=== PATIENT | female | born 2005 | race Hispanic/Latino ===

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

== ENCOUNTER 2023-01-27 08:44 | Emergency (ER) | payer OTHER ==
--- OUTSIDE RECORDS SUMMARY | 2023-01-27 08:49 | XMS REPORT | Continuity of Care Document ---
:2005 Author Organization [facility] t Address [address] [place] [address] Care Team Providers Name Role Phone Tr Perry Attending Clinician TR FENTON Attending Clinician Unavailable Doctor Unassigned, [place] Attending Clinician Unavailable Deya Hooks APN Attending Clinician Javi Baum MD, Michelle Attending Clinician [phone] Rustam Mcintosh MD, Lara Laughlin Attending Clinician [facility] Attending Clinician Unavailable Glenn HER, Zina Amaral Attending Clinician [phone] Nae Montenegro Admitting Clinician Unavailable Payers Payer Name Policy Type Policy Number Effective Date Expiration Date S ource Problems Condition Condition Condition Status Onset Resolution Last Treating Co mments Source Name Details Category Date Date Treatment Clinician Date BMI BMI Disease Active Univers 35.0-35.9, 35.0-35.9, 6-30 it y of adult adult 00:00: [place] 00 Medical Branch General General Disease Active Univers counseling counseling 6-30 it y of for for 00:00: [place] initiation initiation 00 Me dical of other of other Branch contracept contracept dale dale measures measures HSV-1 HSV-1 Disease Active Univers (herpes (herpes 828 ity of simplex simplex 00:00: [place] virus 1) virus 1) 00 Medica l infection infection Bran ch Gonorrhea Gonorrhea Disease Active Uni vers 8-23 ity of 00:00: [place] 00 Medical Branch Chlamydia Chlamydia Disease Active Uni vers trachomati trachomati 8-23 it y of s s 00:00: [place] infection infection 00 Medi nelda of lower of lower Branch genitourin genitourin aye sites aye sites Obesity Obesity Disease Active Univers (BMI (BMI 8-21 ity of 30.0-34.9) 30.0-34.9) [place] Nexplanon Nexplanon Disease Active Uni vers in place in place 8-21 ity of 00:00: [place] 00 Medical Branch Class 2 Class 2 Disease Active Univers obesity obesity 8-21 it[place] of with body with body 00:[place] mass index mass index 00 Me dical (BMI) of (BMI) of Branch 35.0 to 35.0 to 35.9 in 35.9 in adult, adult, unspecifie unspecifie d obesity d obesity type, type, unspecifie unspecifie d whether d whether serious serious comorbidit comorbidit y present y present Allergies, Adverse Reactions, Alerts Allergy Allergy Status Severity Reaction(s) Onset Inactive Treating Comm ents Source Name Type Date Date Clinician No Known DA Active U [facility] Allergie 1-04 Clear s 00:00: [place] 00 [facility] NO KNOWN Drug Active Univers ALLERGIE Class ity of S [facility] Social History Social Habit Start Date Stop Date Quantity Comments Source Exposure to Not sure University SARS-CoV-2 [facility] (event) Branch Alcohol intake 2021-05-31 2021-05-31 Current drinker of Un iversity of 00:00:00 00:00:00 [facility] (finding) [facility] [place] Tobacco use and 2021-05-31 2021-05-31 Never used Universit y of exposure 00:00:00 00:00:00 [facility] Alcohol Comment 2021-05-31 2021-05-31 occasionally Univers ity of 00:00:00 00:00:00 [facility] Sex Assigned At 2005 2003 Universit y of 00:00:00 00:00:00 [facility] Smoking Status Start Date Stop Date Source Never smoker [facility] Medications Ordered Filled Start Stop Current Ordering Indication Dosage Frequency Signature Comments Components Source Medication Medication Date Date Medication? Clinician (SIG) Name Name gillianjasper 2020- No 1000mg 1,000 mg, Univers n 01-09 Oral, ity of (ZITHROMAX) 19:45: 18:59 ONCE, 1 [place] tablet 00 :[place] dose, Sat Medical 1,000 mg 01/09/20 at Branch 1345, FLOR
Re ason for Anti-Infec tive: Empiric Therapy for Suspected Infection< br>Empiric Therapy Site: Urine
D uration of therapy: 72 hours cefTRIAXone 2019- No 1000mg 1,000 mg, Univers (ROCEPHIN) 01-09 IV ity of injection 19:45: 18:59 [place] 1,000 mg 00 :00 ONCE, 1 Medical dose, Sat Branch 01/09/20 at 1345, FLOR
Fa culty member approving Restricted medication : DEYA HOOKS
Reaso n for Anti-Infec tive: Empiric Therapy for Suspected Infection< br>Empiric Therapy Site: Urine
D uration of therapy: 72 hours ketorolac 2019- 2020- No 15mg 15 mg, Unive rs (TORADOL) 01-09 Slow IV ity of injection 19:45: 18:59 Push, [place] 15 mg 00 :00 ONCE, 1 Medical dose, Sat Branch 01/09/20 at 1345, FLOR
Fa culty member approving Restricted medication : DEYA HOOKS ondansetron 2020- No 4mg 4 mg, Slow Univers (ZOFRAN 01-09 IV Push, ity of (PF)) 19:45: 18:59 ONCE, 1 [place] injection 4 00 :00 dose, Sat Med ical mg 01/09/20 at Branch 1345, [place]OR NaCl 0.9% 2019- No 1000mL at 999 Uni vers (NS) bolus 01-09 mL/hr, ity of infusion 19:45: 20:06 1,000 mL, [place] as 1,000 mL 00 :00 IV Medical Infusion, Branch ONCE, 1 dose, 01/09/20 at 1345, STAT doxycycline 2020- No [id number] 100mg Take 1 Univers hyclate 100 01-09 capsule by i ty of mg capsule 00:00: 05:59 mouth 2 [place] as 00 :00 (two) Medical times [place] daily for 14 days. SERTraline 2018-12 Yes [id number] 25mg Take 1 U nivers 25 mg 2-20 tablet by ity of tablet 00:00: mouth [place] 00 daily. Medical Branch SERTraline 2018-12 Yes [id number] 25mg Take 1 U nivers 25 mg 2-20 tablet by ity of tablet 00:00: mouth [place] 00 daily. [facility] Branch SERTraline 2018-12 Yes [id number] 25mg Take 1 U nivers 25 mg 2-20 tablet by ity of tablet 00:00: mouth [place] 00 daily. [facility] Branch SERTraline 2018-12- No [id number] 25mg Take 1 Univers 25 mg 2-20 06-30 tablet by ity of tablet 00:00: 00:00 mouth [place] 00 :00 daily. [facility] Branch SERTraline 2018-12- No [id number] 25mg Take 1 Univers 25 mg 2-20 06-30 tablet by ity of tablet 00:00: 00:00 mouth [place] 00 :00 daily. [facility] Branch SERTRALINE Yes [id number] TAKE 1 U nivers 25 mg 9-17 TABLET BY ity of tablet 00:00: MOUTH [place] 00 EVERY DAY Medical Branch hydrOXYzine 2018- No [id number] 25mg Take 1 Univers 25 mg 9-03 10-04 tablet by ity of tablet 00:00: 04:59 mouth [place] 00 :00 every 8 Medical (eight) Branch hours as needed for Anxiety for up to 30 days. ketoconazol 2019- No [id number] Apply to Univers e 2 % 08-04 area(s) ity of shampoo 00:00: 04:59 once daily [place] 00 :00 as needed Medical for Branch Itching for up to 30 days. hydrOXYzine 2019- No [id number] 25mg Take 1 Univers 25 mg 08-04 tablet by ity of tablet 00:00: 04:59 mouth [place] 00 :00 every 8 Medical (eight) Branch hours as needed for Anxiety for up to 30 days. ketoconazol 2018- No [id number] Apply to Univers e 2 % 08-04 area(s) ity of shampoo 00:00: 04:59 once daily [place] 00 :00 as needed Medical for Branch Itching for up to 30 days. SERTraline 2019- No [id number] 25mg Take 1 Univers 25 mg 8-20 09-20 tablet by ity of tablet 00:00: 04:59 mouth [place] 00 :00 daily for Medical 30 days. Branch SERTraline 2019- No [id number] 25mg Take 1 Univers 25 mg 8-20 09-20 tablet by ity of tablet 00:00: 04:59 mouth [place] 00 :00 daily for Medical 30 days. Branch SERTraline 2019- No [id number] 25mg Take 1 Univers 25 mg 8-20 09-20 tablet by ity of tablet 00:00: 04:59 mouth [place] 00 :00 daily for Medical 30 days. Branch SERTraline 2019- No [id number] 25mg Take 1 Univers 25 mg 8-20 09-20 tablet by ity of tablet 00:00: 04:59 mouth [place] 00 :00 daily for Medical 30 days. Branch SERTraline 2019- No [id number] 25mg Take 1 Univers 25 mg 8-20 09-16 tablet by ity of tablet 00:00: 00:00 mouth [place] 00 :00 daily for Medical 30 days. Branch cefTRIAXone 2019- No 250mg Univ ers (ROCEPHIN) 7-25 07-25 ity of 250 mg in 21:15: 20:14 [place] lidocaine 00 :00 Medical 1% (PF) Branch (XYLOCAINE) 1 mL injection cefTRIAXone 2019- No 250mg 250 mg, U nivers (ROCEPHIN) 06-25-25 Intramuscu it y of 250 mg in 21:15: 20:14 [place], ONCE [place] lidocaine 00 :00 NOW, 1 Medical 1% (PF) dose, Jocelyn Branch (XYLOCAINE) 06/25/19 at 1 mL 1615, 1 injection mL
Reas on for Anti-Infec tive: Documented Infection< br>Documen devang Infection Site: Pelvic
Duration of Therapy: Other (see Comments) PARoxetine Yes [id number] 20mg Take 1 U nivers 20 mg 7-18 tablet by ity of tablet 00:00: mouth [place] 00 every Medical morning. Branch PARoxetine Yes [id number] 20mg Take 1 U nivers 20 mg 7-18 tablet by ity of tablet 00:00: mouth [place] 00 every Medical morning. Branch PARoxetine 2019- No [id number] 20mg Take 1 Univers 20 mg 7-18 08-20 tablet by ity of tablet 00:00: 00:00 mouth [place] 00 :00 every Medical morning. Branch PARoxetine 2019- No [id number] 20mg Take 1 Univers 20 mg 7-18 08-20 tablet by ity of tablet 00:00: 00:00 mouth [place] 00 :00 every Medical morning. Branch clonazePAM 2018- Yes [id number] .5mg Take 1 U nivers 0.5 mg 4-02 tablet by ity of tablet 00:00: mouth 2 [place] 00 (two) Medical times Branch daily as needed (anxiety). clonazePAM 2018- Yes [id number] .5mg Take 1 U nivers 0.5 mg 4-02 tablet by ity of tablet 00:00: mouth 2 [place] 00 (two) Medical times Branch daily as needed (anxiety). clonazePAM 2019-0 Yes [id number] .5mg Take 1 U nivers 0.5 mg 4-02 tablet by ity of tablet 00:00: mouth 2 [place] 00 (two) Medical times Branch daily as needed (anxiety). clonazePAM 2018- 2019- No [id number] .5mg Take 1 Univers 0.5 mg 4-02 09-03 tablet by ity of tablet 00:00: 00:00 mouth 2 [place] 00 :00 (two) Medical times Branch daily as needed (anxiety). clonazePAM 2018- 2019- No [id number] .5mg Take 1 Univers 0.5 mg 03-03 tablet by ity of tablet 00:00: 00:00 mouth 2 [place] 00 :00 (two) Medical times Branch daily as needed (anxiety). busPIRone 5 2019-0 Yes 5mg Take 1 Univ ers mg tablet 3-04 tablet by ity o f 00:00: mouth [place] 00 daily. Medical Branch busPIRone 5 2019-0 Yes 5mg Take 1 Univ ers mg tablet 3-04 tablet by ity o f 00:00: mouth [place] 00 daily. Medical Branch busPIRone 5 2019-0 Yes 5mg Take 1 Univ ers mg tablet 3-04 tablet by ity o f 00:00: mouth [place] 00 daily. Medical Branch busPIRone 5 2019-0 Yes 5mg Take 1 Univ ers mg tablet 3-04 tablet by ity o f 00:00: mouth [place] 00 daily. Medical Branch busPIRone 5 2019-0 Yes 5mg Take 1 Univ ers mg tablet 3-04 tablet by ity o f 00:00: mouth [place] 00 daily. Medical Branch busPIRone 5 2019-0 Yes 5mg Take 1 Univ ers mg tablet 3-04 tablet by ity o f 00:00: mouth [place] 00 daily. Medical Branch busPIRone 5 2019-0 Yes 5mg Take 1 Univ ers mg tablet 3-04 tablet by ity o f 00:00: mouth [place] 00 daily. Medical Branch busPIRone 5 2019-0 Yes 5mg Take 1 Univ ers mg tablet 3-04 tablet by ity o f 00:00: mouth [place] 00 daily. Medical Branch busPIRone 5 2019-0 Yes 5mg Take 1 Univ ers mg tablet 3-04 tablet by ity o f 00:00: mouth [place] 00 daily. Medical Branch busPIRone 5 2019-0 Yes 5mg Take 1 Univ ers mg tablet 3-04 tablet by ity o f 00:00: mouth [place] 00 daily. Medical Branch busPIRone 5 2019-0 2021- No 5mg Take 1 Uni vers mg tablet 3-04 06-30 tablet by ity of 00:00: 00:00 mouth [place] 00 :00 daily. Medical Branch busPIRone 5 2019-0 2021- No 5mg Take 1 Uni vers mg tablet 02-02 tablet by ity of 00:00: 00:00 mouth [place] 00 :00 daily. [facility] Immunizations Ordered Immunization Filled Immunization Date Status Commen ts Source Name Name [facility] 2016-02-24 Completed University of 00:00:00 [facility] Meningococcal B, 2016-02-24 Completed Universi ty of Recombinant 00:00:00 [facility] [place] 2016-02-24 Completed University of 00:00:00 [facility] Meningococcal B, 2016-02-24 Completed Universi ty of Recombinant 00:00:00 [facility] [place] 2016-02-24 Completed University of 00:00:00 [facility] Meningococcal B, 2016-02-24 Completed Universi ty of Recombinant 00:00:00 [facility] [place] 2016-02-24 Completed University of 00:00:00 [facility] Meningococcal B, 2016-02-24 Completed Universi ty of Recombinant 00:00:00 [facility] [place] 2016-02-24 Completed University of 00:00:00 [facility] Meningococcal B, 2016-02-24 Completed Universi ty of Recombinant 00:00:00 [facility] [place] 2016-02-24 Completed University of 00:00:00 [facility] Meningococcal B, 2016-02-24 Completed Universi ty of Recombinant 00:00:00 [facility] [place] 2016-02-24 Completed University of 00:00:00 [facility] Meningococcal B, 2016-02-24 Completed Universi ty of Recombinant 00:00:00 [facility] [place] 2016-02-24 Completed University of 00:00:00 [facility] Meningococcal B, 2016-02-24 Completed Universi ty of Recombinant 00:00:00 [facility] [place] 2016-02-24 Completed University of 00:00:00 [facility] Meningococcal B, 2016-02-24 Completed Universi ty of Recombinant 00:00:00 [facility] [place] 2016-02-24 Completed University of 00:00:00 [facility] Meningococcal B, 2016-02-24 Completed Universi ty of Recombinant 00:00:00 [facility] [place] 2016-02-24 Completed University of 00:00:00 [facility] Meningococcal B, 2016-02-24 Completed Universi ty of Recombinant 00:00:00 [facility] HPV 2016-02-24 Completed University of 00:00:00 [facility] Meningococcal B, 2016-02-24 Completed Universi ty of Recombinant 00:00:00 [facility] TDAP (ADACEL) 2015-06-14 Completed University of VACCINE 00:00:00 [facility] HPV 2015-06-14 Completed University of 00:00:00 [facility] Meningococcal 2015-06-14 Completed University of Vaccine 00:00:00 [facility] TDAP (ADACEL) 2015-06-14 Completed University of VACCINE 00:00:00 [facility] HPV 2015-06-14 Completed University of 00:00:00 [facility] Meningococcal 2015-06-14 Completed University of Vaccine 00:00:00 [facility] TDAP (ADACEL) 2015-06-14 Completed University of VACCINE 00:00:00 [facility] HPV 2015-06-14 Completed University of 00:00:00 [facility] Meningococcal 2015-06-14 Completed University of Vaccine 00:00:00 [facility] TDAP (ADACEL) 2015-06-14 Completed University of VACCINE 00:00:00 [facility] HPV 2015-06-14 Completed University of 00:00:00 [facility] Meningococcal 2015-06-14 Completed University of Vaccine 00:00:00 [facility] TDAP (ADACEL) 2015-06-14 Completed University of VACCINE 00:00:00 [facility] HPV 2015-06-14 Completed University of 00:00:00 [facility] Meningococcal 2015-06-14 Completed University of Vaccine 00:00:00 [facility] TDAP (ADACEL) 2015-06-14 Completed University of VACCINE 00:00:00 [facility] HPV 2015-06-14 Completed University of 00:00:00 [facility] Meningococcal 2015-06-14 Completed University of Vaccine 00:00:00 [facility] TDAP (ADACEL) 2015-06-14 Completed University of VACCINE 00:00:00 [facility] HPV 2015-06-14 Completed University of 00:00:00 [facility] Meningococcal 2015-06-14 Completed University of Vaccine 00:00:00 [facility] TDAP (ADACEL) 2015-06-14 Completed University of VACCINE 00:00:00 [facility] HPV 2015-06-14 Completed University of 00:00:00 [facility] Branch Meningococcal 2015-06-14 Completed University of Vaccine 00:00:00 [facility] TDAP (ADACEL) 2015-06-14 Completed University of VACCINE 00:00:00 [place] [facility] HPV 2015-06-14 Completed University of 00:00:00 [facility] Meningococcal 2015-06-14 Completed University of Vaccine 00:00:00 [facility] TDAP (ADACEL) 2015-06-14 Completed University of VACCINE 00:00:00 [facility] HPV 2015-06-14 Completed University of 00:00:00 [facility] Meningococcal 2015-06-14 Completed University of Vaccine 00:00:00 [facility] TDAP (ADACEL) 2015-06-14 Completed University of VACCINE 00:00:00 [facility] HPV 2015-06-14 Completed University of 00:00:00 [facility] Meningococcal 2015-06-14 Completed University of Vaccine 00:00:00 [facility] TDAP (ADACEL) 2015-06-14 Completed University of VACCINE 00:00:00 [facility] HPV 2015-06-14 Completed University of 00:00:00 [facility] Meningococcal 2015-06-14 Completed University of Vaccine 00:00:00 [facility] HPV 2014-02-10 Completed University of 00:00:00 [facility] HPV 2014-02-10 Completed University of 00:00:00 [facility] HPV 2014-02-10 Completed University of 00:00:00 [facility] HPV 2014-02-10 Completed University of 00:00:00 [facility] HPV 2014-02-10 Completed University of 00:00:00 [facility] HPV 2014-02-10 Completed University of 00:00:00 [facility] HPV 2014-02-10 Completed University of 00:00:00 [facility] HPV 2014-02-10 Completed University of 00:00:00 [facility] HPV 2014-02-10 Completed University of 00:00:00 [facility] HPV 2014-02-10 Completed University of 00:00:00 [facility] HPV 2014-02-10 Completed University of 00:00:00 [facility] HPV 2014-02-10 Completed University of 00:00:00 [facility] DTAP 2007-07-04 Completed University of 00:00:00 [facility] HEPATITIS A 2007-07-04 Completed University of 00:00:00 [facility] Polio (IPV/OPV) 2007-07-04 Completed Universit y of 00:00:00 [place] [facility] DTAP 2007-07-04 Completed University of 00:00:00 [facility] HEPATITIS A 2007-07-04 Completed University of 00:00:00 [place] [facility] Polio (IPV/OPV) 2007-07-04 Completed Universit y of 00:00:00 [place] [facility] DTAP 2007-07-04 Completed University of 00:00:00 [facility] HEPATITIS A 2007-07-04 Completed University of 00:00:00 [place] [facility] Polio (IPV/OPV) 2007-07-04 Completed Universit y of 00:00:00 [facility] DTAP 2007-07-04 Completed University of 00:00:00 [facility] HEPATITIS A 2007-07-04 Completed University of 00:00:00 [facility] Polio (IPV/OPV) 2007-07-04 Completed Universit y of 00:00:00 [facility] DTAP 2007-07-04 Completed University of 00:00:00 [facility] HEPATITIS A 2007-07-04 Completed University of 00:00:00 [facility] Polio (IPV/OPV) 2007-07-04 Completed Universit y of 00:00:00 [facility] DTAP 2007-07-04 Completed University of 00:00:00 [facility] HEPATITIS A 2007-07-04 Completed University of 00:00:00 [facility] Polio (IPV/OPV) 2007-07-04 Completed Universit y of 00:00:00 [facility] DTAP 2007-07-04 Completed University of 00:00:00 [facility] HEPATITIS A 2007-07-04 Completed University of 00:00:00 [facility] Polio (IPV/OPV) 2007-07-04 Completed Universit y of 00:00:00 [place] [facility] DTAP 2007-07-04 Completed University of 00:00:00 [facility] HEPATITIS A 2007-07-04 Completed University of 00:00:00 [facility] Polio (IPV/OPV) 2007-07-04 Completed Universit y of 00:00:00 [facility] DTAP 2007-07-04 Completed University of 00:00:00 [facility] HEPATITIS A 2007-07-04 Completed University of 00:00:00 [facility] Polio (IPV/OPV) 2007-07-04 Completed Universit y of 00:00:00 [facility] DTAP 2007-07-04 Completed University of 00:00:00 [facility] HEPATITIS A 2007-07-04 Completed University of 00:00:00 [facility] Polio (IPV/OPV) 2007-07-04 Completed Universit y of 00:00:00 [facility] DTAP 2007-07-04 Completed University of 00:00:00 [facility] HEPATITIS A 2007-07-04 Completed University of 00:00:00 [facility] Polio (IPV/OPV) 2007-07-04 Completed Universit y of 00:00:00 [facility] DTAP 2007-07-04 Completed University of 00:00:00 [facility] HEPATITIS A 2007-07-04 Completed University of 00:00:00 [facility] Polio (IPV/OPV) 2007-07-04 Completed Universit y of 00:00:00 [facility] MMR 2004-02-09 Completed University of 00:00:00 [facility] Varicella 2004-02-09 Completed University of (varivax)(chicken 00:00:00 [place] M edical pox) Branch [facility] 2004-02-09 Completed University of 00:00:00 [facility] Varicella 2004-02-09 Completed University of (varivax)(chicken 00:00:00 [place] M edical pox) Branch [facility] 2004-02-09 Completed University of 00:00:00 [facility] Varicella 2004-02-09 Completed University of (varivax)(chicken 00:00:00 [place] M edical pox) Branch [facility] 2004-02-09 Completed University of 00:00:00 [facility] Varicella 2004-02-09 Completed University of (varivax)(chicken 00:00:00 [place] M edical pox) Branch [facility] 2004-02-09 Completed University of 00:00:00 [facility] Varicella 2004-02-09 Completed University of (varivax)(chicken 00:00:00 [place] M edical pox) Branch MMR 2004-02-09 Completed University of 00:00:00 [facility] Varicella 2004-02-09 Completed University of (varivax)(chicken 00:00:00 [place] M edical pox) Branch MMR 2004-02-09 Completed University of 00:00:00 [facility] Varicella 2004-02-09 Completed University of (varivax)(chicken 00:00:00 [place] M edical pox) Branch MMR 2004-02-09 Completed University of 00:00:00 [facility] Varicella 2004-02-09 Completed University of (varivax)(chicken 00:00:00 [place] M edical pox) Branch MMR 2004-02-09 Completed University of 00:00:00 [facility] Varicella 2004-02-09 Completed University of (varivax)(chicken 00:00:00 [place] M edical pox) Branch MMR 2004-02-09 Completed University of 00:00:00 [facility] Varicella 2004-02-09 Completed University of (varivax)(chicken 00:00:00 [place] M edical pox) Branch MMR 2004-02-09 Completed University of 00:00:00 [facility] Varicella 2004-02-09 Completed University of (varivax)(chicken 00:00:00 [place] M edical pox) Branch MMR 2004-02-09 Completed University of 00:00:00 [facility] Varicella 2004-02-09 Completed University of (varivax)(chicken 00:00:00 [place] M edical pox) Branch Hep B, Adol or Pedi 2003 Completed Unive rsity of Dosage 00:00:00 [facility] Hep B, Adol or Pedi 2003 Completed Unive rsity of Dosage 00:00:00 [facility] Hep B, Adol or Pedi 2003 Completed Unive rsity of Dosage 00:00:00 [facility] Hep B, Adol or Pedi 2003 Completed Unive rsity of Dosage 00:00:00 [place] [facility] Hep B, Adol or Pedi 2003 Completed Unive rsity of Dosage 00:00:00 [facility] Hep B, Adol or Pedi 2003 Completed Unive rsity of Dosage 00:00:00 [place] [facility] Hep B, Adol or Pedi 2003 Completed Unive rsity of Dosage 00:00:00 [facility] Hep B, Adol or Pedi 2003 Completed Unive rsity of Dosage 00:00:00 [facility] Hep B, Adol or Pedi 2003 Completed Unive rsity of Dosage 00:00:00 [facility] Hep B, Adol or Pedi 2003 Completed Unive rsity of Dosage 00:00:00 [facility] Hep B, Adol or Pedi 2003 Completed Unive rsity of Dosage 00:00:00 [facility] Hep B, Adol or Pedi 2005 Completed Unive rsity of Dosage 00:00:00 [facility] Vital Signs Vital Name Observation Time Observation Value Comments Source Systolic blood 2021-05-31 13:35:00 115 mm[Hg] Univer sity of pressure [facility] Diastolic blood 2021-05-31 13:35:00 87 mm[Hg] Unive rsity of pressure [facility] Heart rate 2021-05-31 13:35:00 86 /min [facility]i ty [facility] Body temperature 2021-05-31 13:35:00 36.44 Laura Univ ers[facility] Respiratory rate 2021-05-31 13:35:00 16 /min Univ ersity of [facility] Body height 2021-05-31 13:35:00 154.9 cm [facility] Body weight 2021-05-31 13:35:00 86.274 kg [facility] BMI 2021-05-31 13:35:00 35.94 kg/m2 [facility] Body weight 2020-01-09 18:33:00 79.8 kg [facility] BMI 2020-01-09 18:33:00 33.24 kg/m2 [facility] Systolic blood 2020-01-09 18:18:00 125 mm[Hg] Univer sity of pressure [facility] Diastolic blood 2020-01-09 18:18:00 71 mm[Hg] Unive rsity of pressure [facility] Heart rate 2020-01-09 18:18:00 108 /min [facility] Body temperature 2020-01-09 18:18:00 36.72 Laura [facility] Respiratory rate 2020-01-09 18:18:00 18 /min Univ ersity [facility] Body height 2020-01-09 18:18:00 154.9 cm Universi ty [facility] Oxygen saturation in 2020-01-09 18:18:00 100 /min [facility] Arterial blood by [facility] Pulse oximetry Branch Body weight 2020-01-09 18:33:00 79.8 kg [facility] BMI 2020-01-09 18:33:00 33.24 kg/m2 [facility] Systolic blood 2020-01-09 18:18:00 125 mm[Hg] [facility] Diastolic blood 2020-01-09 18:18:00 71 mm[Hg] [facility] Heart rate 2020-01-09 18:18:00 108 /min [facility] Body temperature 2020-01-09 18:18:00 36.72 Laura [facility] Respiratory rate 2020-01-09 18:18:00 18 /min [facility] Body height 2020-01-09 18:18:00 154.9 cm [facility] Oxygen saturation in 2020-01-09 18:18:00 100 /min University of Arterial blood by [facility] Pulse oximetry Branch Heart rate 2019-07-21 18:33:00 93 /min [facility] Body temperature 2019-07-21 18:33:00 36.78 Laura [facility] Respiratory rate 2019-07-21 18:33:00 18 /min [facility] Body height 2019-07-21 18:33:00 155.4 cm [facility] Body weight 2019-07-21 18:33:00 76 kg [facility] BMI 2019-07-21 18:33:00 31.47 kg/m2 [facility] Oxygen saturation in 2019-07-21 18:33:00 97 /min University of Arterial blood by [facility] Pulse oximetry Branch Systolic blood 2019-07-21 18:33:00 102 mm[Hg] [facility] Diastolic blood 2019-07-21 18:33:00 67 mm[Hg] [facility] Heart rate 2019-07-21 18:33:00 93 /min [facility] Body temperature 2019-07-21 18:33:00 36.78 Laura [facility] Respiratory rate 2019-07-21 18:33:00 18 /min [facility] Body height 2019-07-21 18:33:00 155.4 cm Universi [facility] Body weight 2019-07-21 18:33:00 76 kg Universi [facility] BMI 2019-07-21 18:33:00 31.47 kg/m2 [facility] Oxygen saturation in 2019-07-21 18:33:00 97 /min [facility] blood by [facility] Pulse oximetry Branch Systolic blood 2019-07-21 18:33:00 102 mm[Hg] Univer sity of pressure [facility] Diastolic blood 2019-07-21 18:33:00 67 mm[Hg] Unive rsity of [facility] Body weight 2019-06-25 20:10:00 76.6 kg [facility] Procedures Procedure Date / Time Performing Clinician Source Performed POCT TEST 2021-05-31 13:38:00 Tr [place] [facility] CONSENT/REFUSAL FOR 2021-05-31 13:00:38 Doctor Unassigned, No [facility] [place] DI[facility] TREATMENT Name [facility] POCT TEST 2020-01-09 19:28:00 Deya [facility]s [facility] LIPASE 2020-01-09 18:56:00 Deya Hooks [facility] COMP. METABOLIC PANEL 2020-01-09 18:56:00 Deya Hooks [facility] ([id number]) [facility] CBC WITH DIFFERENTIAL 2020-01-09 18:56:00 Deya Hooks [facility] URINALYSIS 2020-01-09 18:56:00 Deya Hooks [facility] NOTICE OF PRIVACY 2020-01-09 18:13:22 Doctor Unassigned, No Univ [facility] PRACTICES [facility] CONSENT/REFUSAL FOR 2020-01-09 18:13:03 [facility] ASSIGNMENT OF BENEFITS 2019-08-04 21:00:57 Doctor Unassigned, No [facility] Encounters Start End Encounter Admission Attending Care Care Encounter Source Date/Time Date/Time Type Type Clinicians Facility Department ID 2020-07-17 Inpatient HCACL KAJAL [id number] [facility]:18[facility] 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 [id number] ity of [facility] 4.2.7.2.686 Fernando as MATERNAL [phone] Med ical & CHILD [address] [place] [address] 2021-05-31 2021-05-31 Outpatient R JOSSY [facility] [id number] Univers 08:30:00 08:30:00 KEEGANPATINO ity o f [facility] 2021-05-31 2021-05-31 Orders Doctor ALVINO 1.2.840.114 [id number] Univers 00:00:00 00:00:00 Only Unassigned, SIDNEY 350.1.13.10 ity of [facility] 4.2.7.2.686 Fernando as [phone] [address] 2020-01-09 2020-01-09 Emergency [facility] [id number] [facility] 12:20:39 14:17:00 Deya Alexis 350.1.13.10 ity of [place] 4.2.7.2.686 [facility] [id number] [address] 2020-01-09 2020-01-09 [facility] 1.2.400.087 [id number] 12:20:39 14:17:00 Deya Alexis 350.1.13.10 [place] 4.2.7.2.686 [place] [id number] [facility] 2020-01-09 2020-01-09 Orders Doctor ALVINO 1.2.840.114 [id number] Univers 00:00:00 00:00:00 Only Unassigned, SIDNEY 350.1.13.10 ity of [facility] 4.2.7.2.686 Fernando as [phone] [address] 2020-01-09 2020-01-09 Orders Doctor DE OLIVEIRA 1.2.840.114 [id number] 00:00:00 00:00:00 Only Unassigned, SIDNEY 350.1.13.10 [facility] 4.2.7.2.686 [id number] 009 2019-08-17 2019-08-17 Refill [facility] 1.2.840.114 [id number] Univers 00:00:00 00:00:00 Baum, SPECIALTY 350.1.13.10 ity [place] [id number] [facility] [address] 2019-08-17 2019-08-17 Refill [facility] 1.2.840.114 [id number] 00:00:00 00:00:00 Baum, SPECIALTY 350.1.13.10 [place] 4.2.7.2.686 [place] [id number] 160 2019-08-11 2019-08-11 Telephone [facility] 1.2.281.400 [id number] Univers 00:00:00 00:00:00 Baum, SPECIALTY 350.1.13.10 [place] [id number] [facility] [address] 2019-08-11 2019-08-11 Telephone [facility] 1.2.566.031 [id number] 00:00:00 00:00:00 Baum, SPECIALTY 350.1.13.10 [place] 4.2.7.2.686 [place] [id number] 160 2019-08-04 2019-08-04 Orders Doctor ALVINO 1.2.840.114 [id number] [facility] 00:00:00 00:00:00 Only Unassigned, SIDNEY 350.1.13.10 ity of [facility] 4.2.7.2.686 Fernando as [phone] [facility] [address] Branch 2019-07-21 2019-07-21 [facility] 1.2.840.114 [id number] Univers 13:16:13 14:37:44 Visit Baum, SPECIALTY 350.1.13.10 it[place] [id number] [facility] [address] 2019-07-21 2019-07-21 [facility] 1.2.840.114 [id number] 13:16:13 14:37:44 Visit Sarika, SPECIALTY 350.1.13.10 [place] 4.2.7.2.686 [place] [id number] 160 2019-07-16 2019-07-16 Telephone [place] [facility] 1.2.840.114 [id number] Univers 00:00:00 00:00:00 Dayna, SPECIALTY 350.1.13.10 ity of [facility] 4.2.7.2.686 T jeanette [facility] [id number] [facility] [address] 2019-06-25 2019-06-25 Nurse Nurse, [employer] [facility] 1.2.840.114 [id number] [facility] 15:00:02 15:30:02 Visit Zina Elizabeth SPECIALTY 35 0.1.13.10 ity of [place] [id number] [facility] [address] Results Test Description Test Time Test Comments Results Result Comments Source POCT TEST 2021-05-31 13:38:00 Test Item Value Reference Range Interpretation Comme nts POCT PREG (test code = 1605) Negative On board controls acceptable with C Line (test code = 3574) Yes POCT PREG LOT # (test code = 3575) POCT PREG TEST DATE (test code = 3576) Lab Interpretation (test code = 62760-3) [facility] [id number] 13:38:00 Test Item Value Reference Range Interpretation Comments POCT PREG (test code = 1605) Negative On board controls acceptable with C Yes Line (test code = 3574) POCT PREG LOT # (test code = 3575) POCT PREG TEST DATE (test code = 3576) Lab Interpretation (test code = Normal 07949-7) [facility] PREG UT [id number] 15:00:00 Name: KUSH JIMENEZ [facility] : 2005 Age/S: 15 / F [address] [place] [address] Unit#: [id number] Loc: [place] [address] Phys: Mikael Stearns MD Acct: [id number] Dis Date: Status: PRE ER PHONE #: [phone] Exam Date: 07/17/2020 1434 FAX #: [phone] Reason: see US PREG 1st TRIMTR EXAMS: CPT CODE: [id number] US PREG [place] TRANSVAGINAL 49839 Clinical Indication: pelvic pain and bleeding, 4 weeks Comparison: None US PELVIS Technique: Grayscale, color and Doppler transabdominal and transvaginal imaging of the pelvis was performed with standard technique. Transvaginal imagi ng was necessary for better evaluation of the [...] and the left ovary measures 2.4 x 1x 2.1 cm. There is normal ovarian contour [...] with serial b-hCG and pelvic ultrasound. SL: MTELESMANICH-H at 1500 Reported and signed by: Christiano Mariscal M.D. CC: Mikael Stearns MD; Nae Montenegro MD Technologist: Susanna Gee RDMS(OB)(AB) Trnscb Date/Time: 07/17/2020 (1500) [email or web address] Orig PrintD/T: S: 07/17/2020 (1503) Probe: [id number] PAGE 1 Signed Report- DUP AB/PEL/SC/[id number] 15:00:00 Name: KUSH JIMENEZ [facility] : 2005 Age/S: 15 / F [address] [place] [address] Unit#: [id number] Loc: [place] [id number] Phys: Mikael Stearns MD Acct: [id number] Dis Date: Status: PRE ER PHONE #: [phone] Exam Date: 07/17/2020 1434 FAX #: [phone] Reason: see US PREG 1st TRIMTR EXAMS: CPT CODE: [id number] DUP AB/PEL/SC/LTD 24858 Clinical Indication: pelvic pain and bleeding, 4 weeks Comparison: None US PELVIS Technique: Grayscale, color and Doppler transabdominal and transvaginal imaging of the pelvis was performed with standard technique. Transvaginal imaging was necessary for better evaluation of the endometrium and ovaries. FINDINGS: UTERUS: The anteverted ut erus measures 6.6 x 2.9 x 3.8 cm in size. Normal uterine contour and morphology. There is normal parenchymal echotexture. The endometrial stripe measures 8.5 mm in thickness. No intrauterine gestational sac. OVARIES: The right ovary measures 2.3 x 1.6 x 1.5 cm and the left ovary measures 2.4 x 1 x 2.1cm. There is normal ovarian contour and morphology. 1.3 x 1 x 1.2 cm corpus luteum in the right ovary. There are no adnexal masses. The limited Doppler images show normal bilateral ovarian blood flow.OTHER FINDINGS: Trace free fluid in the pelvic cul-de-sac. IMPRESSION: of undetermined location. No intrauterine gestational sac. Follow-up may be performed with serial b-hCG and pelvic ultrasound. SL: MTELESMANICH-H at 1500 Reported and signed by: Christinao Mariscal M.D. CC: Mikael Stearns MD; Nae Montenegro MD Technologist: Susanna Gee RDMS(OB)(AB) Trnscb Date/Time: 07/17/2020 (1500) [email or web address] Orig Print D/T:S: 07/17/2020 (3284) Probe: PAGE 1 Signed Report- US PREG 1ST TRIMTR 2020-07-17 15:00:00 Name: KUSH JIMENEZ [facility] : 2005 Age/S: 15 / F [address] [place] [address] Unit#: [id number] Loc: [place] [address] Phys: Mikael Stearns MD Acct: [id number] Dis Date: Status: PRE ER PHONE #: [phone] Exam Date: 07/17/2020 1434 FAX #: [phone] Reason: Pelvic Pain EXAMS:CPT CODE: [id number] US PREG 1ST TRIMTR 82873 Clinical Indication: pelvic pain and bleeding, 4 [...] measures 2.4 x 1 x 2.1 cm. Thereis normal ovarian contour and morphology. 1.3 x 1 x 1.2 cm corpus luteum in the right ovary. There are no adnexal masses. The limited Doppler images show normal bilateral ovarian blood flow. OTHER FINDINGS: Trace free fluid in the pelvic cul-de-sac. IMPRESSION: of undetermined location. No intrauterine gestational sac. Follow-up may be performed with serial b-hCG and pelvic ultrasound. SL: MTELESMANICH-H at 1500 Reported and signed by: Christiano Mariscal M.D. CC: Mikael Stearns MD; Nae Montenegro MD Technologist: Susanna Gee RDMS(OB)(AB) Trnscb Date/Time: 07/17/2020 (1500) [email or web address] Orig Print D/T: S: 07/17/2020 (9200) Probe: PAGE 1 Signed ReportBASIC METABOLIC [id number] 14:33:00 Test Item Value Reference Range Interpretation Comments SODIUM (test code = NA) 139 mEq/L 134-147 N POTASSIUM (test code = K) 3.5 mEq/L 4.0-6.5 L CHLORIDE (test code = CL) 103 mEq/L 100-108 N CARBON DIOXIDE (test code = CO2) 28 mEq/L 21-33 N ANION GAP (test code = GAP) 11 0-20 N GLUCOSE (test code = GLU) 89 mg/dL 60-110 N BLOOD UREA NITROGEN (test code = 10 mg/dL 7-18 N BUN) CREATININE (test code = CREAT) 0.5 mg/dL 0.6-1.3 L CALCIUM (test code = CA) 9.3 mg/dL 8.0-10.5 N Is patient ? YHOW MANY WEEKS? 3 WEEKSHCG [id number] 14:33:00 Test Item Value Reference Range Interpretation Comments HCG SERUM (test 0.8 0 - 6 NOT P REGNANT > 6 code = HCG) SUGGESTIVE OF E MISTI RISES TWO FOLD EVERY 2 DAYS; SUGGEST RECONFI RMING AFTER 2 DAYS. 150,000-[address] TRIME[address] 10,00 0 - 50,000 2ND & 3RD TRIMESTER Results in renee-Internati onal Units/mL Is patient ? [...] culture: Suprapubic PainSpecimen Description: CLEAN CATCHCBC W/AUTO [id number] 14:05:00 Test Item Value Reference Range Interpretation [...] DIFF REQUIRED (test code NO = MDIFF) COMP. METABOLIC PANEL (74054)2020-01-09 19:34:00 Test Item Value Reference Range Interpretation Comments NA (test code = 140 mmol/L 135-145 9251496037) K (test code = 3.5 mmol/L 3.5-5 2904899395) CL (test code = 100 mmol/L 98-108 1466109205) CO2 TOTAL (test code = 32 mmol/L 23-31 H 0645248037) AGAP (test code = 2-16 7594010005) BUN (test code = 12 mg/dL 7-23 2720762255) GLUCOSE (test code = 97 mg/dL 70-110 1872323542) CREATININE (test code = 0.55 mg/dL 0.5-1.04 7283651930) TOTAL BILI (test code = 0.6 mg/dL 0.1-1.1 5384299535) CALCIUM (test code = 10.3 mg/dL 8.6-10.6 4476676276) T PROTEIN (test code = 8.4 g/dL 6.3-8.2 H 2622631698) ALBUMIN (test code = 5.0 g/dL 3.5-5 3424416445) ALK PHOS (test code = 75 U/L 34-122 0820546066) ALTv (test code = 18 U/L 5-35 1742-6) AST(SGOT) (test code = 19 U/L 13-40 4642308167) TIFFANY (test code = TIFFANY) Association of Glomerular Filtration Rate (GFR) and Staging of Kidney Disease* + --+ --+ ------+| GFR (mL/min/1.73 m2) ?| With Kidney Damage ?| ?Without Kidney Damage+ --------+ --------+ +| ?>90 ?| ?Stage one ?| ? Normal ?+ ---+ ---+ -------+| ?60-89 ?| ?Stage two ?| ? Decreased GFR ? + --+ --+ ------+| ?30-59 ?| ?Stage three ?| ? Stage three ? + --+ --+ ------+| ?15-29 ?| ?Stage four ? | ? Stage four ?+ ---+ ---+ -------+| ?<15 (or dialysis) ? ?| ?Stage five ? | ? Stage five ?+ ---+ ---+ -------+ *Each stage assumes the associated GFR level has been in effect for at least three months. ?Stages 1 to 5, with or without kidney disease, indicate chronic kidney disease. Notes: Determination of stages one and two (with eGFR >59mL/min/1.73 m2) requires estimation of kidney damage for at least three months as defined by structural or functional abnormalities of the kidney, manifested by either:Pathological abnormalities or Markers of kidney damage (including abnormalities in the composition of the blood or urine or abnormalities in imaging tests). Lab Interpretation Abnormal (test code = 32662-6) [facility] 19:34:00 Test Item Value Reference Range Interpretation Comments LIPASE (test code = 7412409728) 30 U/L 0-220 Lab Interpretation (test code = Normal 40664-6) [facility] 19:30:00 Test Item Value Reference Range Interpretation Comments APPEARANCE (test code = Hazy Clear A 5055068283) COLOR (test code = Yellow Yellow 3320778418) PH (test code = 4.8-8.0 1312617723) SP GRAVITY (test code = 1.003-1.030 3723392606) GLU U QUAL (test code = Normal Normal 7542946198) BLOOD (test code = 2+ Negative A 6476367588) KETONES (test code = Negative Negative 2361249027) PROTEIN (test code = Negative Negative 2887-8) UROBILIN (test code = Normal Normal 4253660596) BILIRUBIN (test code = Negative Negative 8279916304) NITRITE (test code = Negative Negative 1310619573) LEUK LIZETH (test code = 25/uL Negative A 1690500319) RBC/HPF (test code = See_Comment H [Autom ated message] 5482824129) The system Anth[employer] generated this result transmitted ref erence range: 0 - 3 HP F. The reference range was not used to int erpret this result as normal/abnormal . WBC/HPF (test code = See_Comment H [Autom ated message] 0584518351) The system [employer] generated this result transmitted ref erence range: 0 - 5 HP F. The reference range was not used to int erpret this result as normal/abnormal . BACTERIA (test code = Few Negative A 2336546116) MUCOUS (test code = Slight Negative LPF A 9773851988) SQ EPITH (test code = HPF 5413429472) Lab Interpretation (test Abnormal code = 97785-9) [facility] [id number] 19:28:00 Test Item Value Reference Range Interpretation Comments POCT PREG (test code = 1605) negative On board controls acceptable with present C Line (test code = 3574) POCT PREG LOT # (test code = 3575) [id number] POCT PREG TEST DATE (test 07-01-2021 code = 3576) Lab Interpretation (test code = Normal 06791-6) [facility] [id number] 19:17:00 Test Item Value Reference Range Interpretation Comments WBC (test code = See_Comment H [Automated 7190-2) message] The sy stem which generated this result transmitted reference range : 4.50 - 13.50 10*3/?L. The reference range was not used to interpret this result as normal/abnormal . RBC (test code = See_Comment [Automated 789-8) message] The sy stem which generated this result transmitted reference range : 4.10 - 5.10 10*6/?L. The reference range was not used to interpret this result as normal/abnormal . HGB (test code = 13.8 g/dL 12-16 718-7) HCT (test code = 42.7 % 36-45 4544-3) MCV (test code = 89.3 fL 78-95 787-2) MCH (test code = 28.9 pg 26-32 785-6) MCHC (test code = 32.3 g/dL 32-36 786-4) RDW-SD (test code = 41.3 fL 38.5-49 87088-2) RDW-CV (test code = 12.6 % 11.5-14 788-0) PLT (test code = See_Comment [Automated 777-3) message] The sy stem which generated this result transmitted reference range : 135 - 361 10*3/ ?L. The reference r kofi was not used to interpret this result as normal/abnormal . MPV (test code = 10.2 fL 9.4-13.3 49084-8) NRBC/100 WBC (test See_Comment [Automat ed code = 2450774030) message] The system which generated this result transmitted reference range : 0.0 - 10.0 /100 WBCs. The refer ence range was not u sed to interpret th is result as normal/abnormal . NRBC x10^3 (test code <0.01 See_Comment [Auto mated = 5351738001) message] The s ystem which generated this result transmitted reference range : 10*3/?L. The reference range was not used to interpret this result as normal/abnormal . GRAN MAT (NEUT) % 69.9 % (test code = 770-8) IMM GRAN % (test code 0.40 % = 3134161378) LYMPH % (test code = 22.6 % 736-9) MONO % (test code = 6.4 % 5905-5) EOS % (test code = 0.3 % 713-8) BASO % (test code = 0.4 % 706-2) GRAN MAT x10^3(ANC) 9.68 10*3/uL 1.5-10.3 (test code = 8531236214) IMM GRAN x10^3 (test 0.05 10*3/uL 0-0.06 code = 5048185861) LYMPH x10^3 (test code 3.13 10*3/uL 0.7-7.4 = 731-0) MONO x10^3 (test code 0.88 10*3/uL 0-0.5 H = 742-7) EOS x10^3 (test code = 0.04 10*3/uL 0-0.4 711-2) BASO x10^3 (test code 0.05 10*3/uL 0-0.1 = 704-7) Lab Interpretation Abnormal (test code = 57107-7) [facility]"
[2023-01-27] MEDS ORDERED: MAGNES/ALUMIN/SIMET 30ML UCUP ONE (09:09)
[2023-01-27] MEDS ORDERED: NA CHLORIDE 0.9% 1,000 ML ONE (09:10)
[2023-01-27] MEDS ORDERED: LIDOCAINE VISCOUS 2% SOLN 15 ML UDC ONE (09:10)
[2023-01-27] MEDS ORDERED: ONDANSETRON 4 MG/2 ML VIAL ONE (09:10)
[2023-01-27 09:21] LABS: Urine Blood Negative (Negative); Urine Glucose Negative (Negative); Urine Protein Negative (Negative); Urine Specific Gravity >=1.030 (1.005-1.030)
[2023-01-27 09:39] LABS: Absolute Lymphocytes (CBC) 3.5 K/uL (0.7-4.9); Hematocrit 37.8 % (36.0-45.0); Lymphocytes % 34.7 % (15.3-44.8); MPV 8.4 fL (7.6-11.3)
[2023-01-27 09:51] LABS: Albumin 3.7 g/dL (3.4-5.0); Bilirubin Total 0.5 mg/dL (0.2-1.0); Potassium 3.5 mmol/L (3.5-5.1)
--- NOTE | 2023-01-27 10:03 | RAD REPORT ---
EXAM DESCRIPTION: CT - Abdomen Pelvis W Contrast - 01/27/2023 9:44 am CLINICAL HISTORY: Abdominal pain. Nausea, vomiting, and diarrhea, started this morning COMPARISON: None. TECHNIQUE: Biphasic, helical CT imaging of the abdomen and pelvis was performed following intravenou s administration of 90 mL Isovue nonionic contrast. Multiplanar reformats were generated and reviewed . All CT scans are performed using dose optimization technique as appropriate and may include automated exposure control or mA/KV adjustment according to patient size. FINDINGS: No suspicious findings in the lung bases. The liver, spleen, and pancreas show no suspicious findings. Gallbladder and biliary tree are also wi thout suspicious finding. Symmetric renal function is seen with no hydronephrosis or suspicious renal mass. No dilated bowel loops or bowel wall thickening. No free air, free fluid or inflammatory stranding. T he appendix is unremarkable. No hernia, mass or bulky lymphadenopathy. Suboptimally distended urinary bladder, limiting evaluation, without focal findings. No suspicious bony findings. IMPRESSION: No acute intra-abdominal process.
[2023-01-27 10:08] LABS: SARS-COV-2 RT PCR NEGATIVE (NEGATIVE)
--- NOTE | 2023-01-27 10:25 | ER ---
Nurse's Notes [facility] – [place], [place] Name: Agata Thompson Age: 18 yrs Sex: Female : 2005 Arrival Date: 01/27/2023 Time: 08:48 Bed 19 Private MD: Diagnosis: Abdominal pain, unspecified;Nausea with vomiting, unspecified;Diarrhea, unspecified Presentation: 01/27 08:49 Chief complaint: Patient states: nausea/vomiting/diarrhea that began this morning. aa5 Reports she "drank wine last night". Pt reports stomach ache from "throwing up". 08:49 Onset of symptoms was January 27, 2023. aa5 08:49 Acuity: NOE 3 aa5 08:49 Method Of Arrival: Ambulatory aa5 08:49 Coronavirus screen: nausea, vomiting. Ebola Screen: Patient denies travel to an [facility] Ebola-affected area in the 21 days before illness onset. Initial Sepsis Screen: Does the patient meet any 2 criteria? No. Patient's initial sepsis screen is negative. Does the patient have a suspected source of infection? No. Patient's initial sepsis screen is negative. Risk Assessment: Do you want to hurt yourself or someone else? Patient reports no desire to harm self or others. 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 - Family history:: not pertinent. - Social history:: Smoking status: Patient denies any tobacco usage or history of. - Hospitalizations: : No recent hospitalization is reported. Screenin:00 [facility] ED Fall Risk Assessment (Adult) History of falling in the last 3 months, ko1 including since admission No falls in past 3 months (0 pts) Confusion or Disorientation No (0 pts) Intoxicated or Sedated No (0 pts) Impaired Gait No (0 pts) Mobility Assist Device Used No (0 pt) Altered Elimination No (0 pt) Score/Fall Risk Level 0 - 2 = Low Risk Oriented to surroundings, Maintained a safe environment, Educated pt \\T\\ family on fall prevention, incl call for assistance when getting out of bed, Assessed \\T\\ reinforced patient's understanding of fall precautions, Provided non-skid footwear, Hourly rounding (assess needs \\T\\ fall precautionary measures) done, Used ambulatory aids as needed (educated on \\T\\ assisted with), Used gait belt as appropriate. Abuse screen: Denies threats or abuse. Denies injuries from another. Nutritional screening: No deficits noted. Tuberculosis screening: No symptoms or risk factors identified. Assessment: 09:00 General: Appears in no apparent distress. uncomfortable, Behavior is calm, cooperative, ko1 appropriate for age. Pain: Complains of pain in abdomen Quality of pain is described as sore from throwing up. Neuro: No deficits noted. Cardiovascular: No deficits noted. Respiratory: No deficits noted. GI: Bowel sounds present X 4 quads. Abd is soft and non tender X 4 quads. Reports diarrhea, nausea, vomiting. : No deficits noted. EENT: No deficits noted. Derm: No deficits noted. Musculoskeletal: No deficits noted. Vital Signs: 08:49 BP 113 / 78; Pulse 78; Resp 18 S; Temp 98.2(O); Pulse Ox 99% on R/A; Weight 86.18 kg aa5 (R); 09:00 BP 113 / 78; Pulse 76; Resp 18; Pulse Ox 99% ; ko1 09:03 BP 166 / 77; Pulse 78; Resp 16; Pulse Ox 99% ; ko1 10:06 BP 118 / 78; Pulse 82; Resp 16; Pulse Ox 99% ; ko1 ED Course: 08:48 Patient arrived in ED. rg4 08:49 Bertin Arnold MD is Attending Physician. rn 08:49 Arm band placed on. aa5 08:50 Mahsa Wise, [place] is Primary Nurse. ko1 08:56 Triage completed. aa5 09:00 Patient has correct armband on for positive identification. Bed in low position. Call ko1 light in reach. Side rails up X 1. Pulse ox on. NIBP on. 09:00 No provider procedures requiring assistance completed. ko1 09:13 COVID-19/FLU A+B Sent. ko1 09:14 CBC with Diff Sent. ko1 09:14 CMP Sent. ko1 09:14 Lipase Sent. ko1 09:49 Inserted saline lock: 20 gauge in right antecubital area, using aseptic technique. rs5 Blood collected. 09:52 CT Abd/Pelvis - IV Contrast Only In Process Unspecified. EDMS 10:26 IV discontinued, intact, bleeding controlled, No redness/swelling at site. Pressure ko1 dressing applied. Administered Medications: 09:13 Drug: GI Cocktail without - (Maalox Suspension 30 ml, Lidocaine Liquid 2 % 15 ko1 ml) Route: PO; 09:25 Follow up: Response: No adverse reaction ko1 09:14 Drug: NS 0.9% 1000 ml Route: IV; Rate: 1 bolus; Site: right antecubital; ko1 09:25 Follow up: Response: No adverse reaction ko1 09:14 Drug: Zofran (Ondansetron) 4 mg Route: IVP; Site: right antecubital; ko1 09:25 Follow up: Response: No adverse reaction; Nausea is decreased ko1 Medication: 09:00 VIS not applicable for this client. ko1 Outcome: 10:25 Discharge ordered by . rn 10:26 Discharged to home ambulatory. ko1 10:26 Condition: improved 10:26 Discharge instructions given to patient, Instructed on discharge instructions, follow up and referral plans. medication usage, Demonstrated understanding of instructions, follow-up care, medications, Prescriptions given X 1. 10:33 Patient left the ED. ko1 Signatures: Dispatcher [employer] EDMS Bertin Arnold MD MD rn Calderon, Audri RN RN [id number] Shawnee Garcia rg4 Mahsa Wise RN RN ko1 Arron Fuentes rs5
--- NOTE | 2023-01-27 10:25 | EDPHYS ---
Physician Documentation [facility] Name: Agata Thompson Age: 18 yrs Sex: Female : 2005 Arrival Date: 01/27/2023 Time: 08:48 Bed 19 Private MD: ED Physician Bertin Arnold HPI: 01/27 09:04 This 18 yrs old Female presents to ER via Ambulatory with complaints of rn Abdominal Pain, Nausea/Vomiting. 09:04 The patient presents to the emergency department with nausea, vomiting, diarrhea, rn abdominal pain. Onset: The symptoms/episode began/occurred this morning. Possible causes: sick contacts, by a friend. The symptoms are aggravated by nothing. The symptoms are alleviated by nothing. Associated signs and symptoms: Pertinent positives: abdominal pain, diarrhea, nausea, vomiting. Severity of symptoms: At their worst the symptoms were mild in the emergency department the symptoms are unchanged. The patient has not experienced similar symptoms in the past. The patient has not recently seen a physician. Pt reports nausea/vomiting/diarrhea/abd pain that began this morning. Here with friend who has similar symptoms. Reports drinking wine coolers last night.. 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 - Family history:: not pertinent. - Social history:: Smoking status: Patient denies any tobacco usage or history of. - Hospitalizations: : No recent hospitalization is reported. ROS: 09:04 Constitutional: Negative for fever, chills, and weight loss, Eyes: Negative for injury, rn pain, redness, and discharge, Neck: Negative for injury, pain, and swelling, Cardiovascular: Negative for chest pain, palpitations, and edema, Respiratory: Negative for shortness of breath, cough, wheezing, and pleuritic chest pain, Abdomen/GI: + abd pain/nausea/vomiting/diarrhea Back: Negative for injury and pain, MS/Extremity: Negative for injury and deformity, Skin: Negative for injury, rash, and discoloration, Neuro: Negative for headache, weakness, numbness, tingling, and seizure. Exam: 09:04 Constitutional: This is a well developed, well nourished patient who is awake, alert, rn and in no acute distress. Head/Face: Normocephalic, atraumatic. ENT: dry MM Cardiovascular: Regular rate and rhythm. No pulse deficits. Respiratory: No increased work of breathing, no retractions or nasal flaring. Abdomen/GI: soft, mild epigastric tenderness, no rebound Skin: Warm, dry MS/ Extremity: Pulses equal, no cyanosis. Neuro: Awake and alert, GCS 15 Vital Signs: 08:49 BP 113 / 78; Pulse 78; Resp 18 S; Temp 98.2(O); Pulse Ox 99% on R/A; Weight 86.18 kg aa5 (R); 09:00 BP 113 / 78; Pulse 76; Resp 18; Pulse Ox 99% ; ko1 09:03 BP 166 / 77; Pulse 78; Resp 16; Pulse Ox 99% ; ko1 10:06 BP 118 / 78; Pulse 82; Resp 16; Pulse Ox 99% ; ko1 MDM: 08:49 Patient medically screened. rn 10:24 Differential diagnosis: Nonspecific abd pain, gastritis, pancreatitis, viral rn gastroenteritis, gastroenteritis. Data reviewed: vital signs, nurses notes, lab test result(s), radiologic studies, CT scan, and as a result, I will discharge patient. I considered the following discharge prescriptions or medication management in the emergency department Medications were administered in the Emergency Department. See MAR. Counseling: I had a detailed discussion with the patient and/or guardian regarding: the historical points, exam findings, and any diagnostic results supporting the discharge/admit diagnosis, lab results, radiology results, the need for outpatient follow up, to return to the emergency department if symptoms worsen or persist or if there are any questions or concerns that arise at home. Special discussion: Based on the patient's Hx, exam, and Dx evaluation, there is no indication for emergent surgery or inpatient Tx. It is understood by the patient/guardian that if the Sx's persist or worsen they need to return immediately for re-evaluation. I discussed with the patient/guardian in detail that at this point there is no indication for admission to the hospital. It is understood, however, that if the symptoms persist or worsen the patient needs to return immediately for re-evaluation. 01/27 09:00 Order name: CBC with Diff; Complete Time: 09:41 rn 01/27 09:00 Order name: CMP; Complete Time: 10:05 rn 01/27 09:00 Order name: Lipase; Complete Time: 10:05 rn 01/27 09:00 Order name: COVID-19/FLU A+B; Complete Time: 10:24 rn 01/27 09:21 Order name: Urine Dipstick-Ancillary; Complete Time: 09:41 EDMS 01/27 09:26 Order name: Urine --Ancillary (enter results) eb 01/27 09:00 Order name: CT Abd/Pelvis - IV Contrast Only; Complete Time: 10:05 rn 01/27 09:00 Order name: IV Saline Lock; Complete Time: 09:14 rn 01/27 09:00 Order name: Labs collected and sent; Complete Time: 09:14 rn 01/27 09:00 Order name: Urine Dipstick-Ancillary (obtain specimen); Complete Time: 09:14 rn 01/27 09:00 Order name: Urine Test (obtain specimen); Complete Time: 09:14 rn Administered Medications: 09:13 Drug: GI Cocktail without - (Maalox Suspension 30 ml, Lidocaine Liquid 2 % 15 ko1 ml) Route: PO; 09:25 Follow up: Response: No adverse reaction ko1 09:14 Drug: NS 0.9% 1000 ml Route: IV; Rate: 1 bolus; Site: right antecubital; ko1 09:25 Follow up: Response: No adverse reaction ko1 09:14 Drug: Zofran (Ondansetron) 4 mg Route: IVP; Site: right antecubital; ko1 09:25 Follow up: Response: No adverse reaction; Nausea is decreased ko1 Disposition Summary: 01/27/23 10:25 Discharge Ordered Location: Home rn Problem: new rn Symptoms: have improved rn Condition: Stable rn Diagnosis - Abdominal pain, unspecified rn - Nausea with vomiting, unspecified rn - Diarrhea, unspecified rn Followup: rn - With: Private Physician - When: As needed - Reason: Recheck today's complaints, Re-evaluation by your physician Discharge Instructions: - Discharge Summary Sheet rn - Abdominal Pain, Adult rn - Diarrhea, Adult rn - Nausea and Vomiting, Adult, [id number] rn Forms: - Medication Reconciliation Form rn - Thank You Letter rn - 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
[2023-01-27 11:11] VITALS: TEMP 98.2; O2SAT 99
[2023-01-27 11:36] VITALS: BP 118/78
== END 2023-01-27 10:33 | disposition home or self-care (01) ==
LOC: ER 08:44
DX: R10.9 Unspecified abdominal pain (principal); R11.2 Nausea with vomiting, unspecified; R19.7 Diarrhea, unspecified; Z20.822 Contact with and (suspected) exposure to COVID-19
CPT/HCPCS: 85025; 36415; 81025; 81003; 83690; 80053; 0240U; 74177; 96374; 99284; Q9967; J7030; J2405